=== PATIENT | female | born 1990 | race Caucasian/White ===

== ENCOUNTER 2021-04-27 17:53 | Emergency (ER) | payer OTHER, SELFPAY ==
[2021-04-27 17:54] VITALS: BP 120/92; PULSE 108; RESP 16; TEMP 36.6; O2SAT 99; BMI 17.6
--- NOTE | 2021-04-27 18:21 | EDS_ITS ---
HPI History of Present Illness Chief Complaint: Sore Throat Detail of Chief Complaint: Throat pain for 1 week Informant: patient Narrative Narrative: Patient presents to the emergency department with complaint of throat pain that she has had for about a week continuously. She complains of pain with swallowing. Patient is not sure if this is related to reflux. 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 Patient has history of ulcerative colitis. Patient states that she has had recent evaluation of her thyroid because she had a nodule and has had an ultrasound within the last 6 months. Patient states all her thyroid studies have been normal. Patient denies fever. She denies cough. Patient states that she has had multiple x-rays of her teeth and had a CT scan of her dentition as well. Patient's had recent chest x-ray. Patient is concerned about getting a CT scan of her neck and is asking if she can have an MRI of her neck. Patient has had similar symptoms of throat pain in the past but not as severe. Patient also describes some pain to the left side of her neck. Prior similar symptoms: Yes PFSH PFSH Medical History no medical history Allergy/AdvReac Type Severity Reaction Status Date / Time No Known Allergies Allergy Verified 04/27/21 17:57 Social History Smoking Status: Unknown if ever smoked ROS ROS ED Constitutional Constitutional ED: Reports systems reviewed and no addt'l complaints, except as documented; Denies body ache(s), change in weight or chills Eyes Eyes: Denies acute decrease in peripheral vision, change in vision, double vision or loss of vision ENT ENT ED: Reports none and other Details: Throat pain ; Denies ear pain, lip swelling, loss taste/smell, neck pain, otalgia or sore throat Cardiovascular Cardiovascular: Reports none; Denies abdominal pain, chest pain with activity, leg edema, lightheadedness, palpitations, rapid heart rate or syncope Respiratory/Chest Respiratory/Chest: Reports none; Denies change in mental status, dry cough, dyspnea, hemoptysis, shortness of breath at rest or shortness of breath with exertion Gastrointestinal Gastrointestinal: Reports none; Denies abdominal pain, change in stool character, diarrhea, hematemesis, hematochezia, melena, rectal bleeding or vomiting Genitourinary Genitourinary ED: Reports none; Denies abdominal discomfort, anuria, dysuria, genital pain or polyuria Musculoskeletal Musculoskeletal: Reports none; Denies arthralgias, back pain, difficulty walking, extremity pain, muscle weakness or myalgias Integumentary Reports none; Denies abscess or rash Neurologic Neurologic: Reports none; Denies abnormal gait, confusion, focal weakness, frequent falls, headache(s), loss of vision, numbness, paresthesias, radicular pain, vertigo or weakness Psychiatric Psychiatric: Reports systems reviewed and no addt'l complaints, except as documented and none; Denies behavioral changes, confusion, difficulty concentrating, hallucinations, suicidal ideation, tactile hallucinations or visual hallucinations Endocrine Endocrinology: Denies none, cold intolerance, excessive sweating, fatigue or heat intolerance Hematologic/Lymphatic Hematologic/Lymphatic: Reports none; Denies anemia, easy bleeding or easy bruising Allergic/Immunologic Allergic/Immunologic ED: Denies as per HPI, none, lip swelling, mouth swelling, throat swelling, tongue swelling or hives EXAM Physical Exam Const Vital Signs: 04/27/21 17:54 Temperature 97.8 F Temperature Source Temporal Pulse Rate 108 H Respiratory Rate 16 Blood Pressure 120/92 H Blood Pressure Mean 101 Pulse Ox 99 Oxygen Delivery Method Room Air Positive well nourished and well developed General Appearance ED: well developed and NAD HEENT Reports TM's clear and moist mucous membranes HEENT Narrative: I do not appreciate any masses with palpation over thyroid or throat. There is no cervical adenopathy noted. Patient has some mild tenderness with palpation over her trachea. normocephalic and atraumatic; Negative for trauma or tenderness Tympanic Membrane ED: Yes TM's clear Eyes PERRL and EOMs intact bilaterally General Eye ED: Negative for pale conjunctiva or scleral icterus Neck no lymphadenopathy, supple and no JVD General: Negative for tenderness Chest Wall inspection of chest normal and palpation of chest normal Chest: Negative for tenderness Resp normal respiratory effort and clear to auscultation bilaterally Effort and Inspection: Negative for respiratory distress or pain with movement Auscultation: Negative for rhonchi, wheezes or diminished lung sounds Cardio regular rate, regular rhythm, S1 normal heart sound, S2 normal heart sound and no murmurs Peripheral Pulses: pulses 2+ throughout GI normal to inspection, nondistended, normoactive bowel sounds, soft to palpation, non-tender, non-distended and no masses Back/Spine no CVA tenderness and no thoracic nor lumbar tenderness Extremity normal to inspection General Extremety ED: Negative for edema General Extremity: Negative for edema Neuro oriented x3, CN's II-XII intact bilaterally, no sensory deficits noted and gait normal Sensorium / Orientation: awake, alert, oriented to person, oriented to place and oriented to time Motor Exam: strength 5/5 throughout and strength abnormal Psych mental status grossly normal Skin no rashes or lesions noted and no wounds MDM MDM MDM Narrative Medical decision making narrative: I had a long discussion with patient and her mother who is with her. Etiology of her throat pain is unclear and recommended CT scan with IV contrast to evaluate further and rule out masses or other abnormalities. Patient is not comfortable with the radiation related to CT scan and states that she would prefer to follow-up with ENT and GI to evaluate further. At this point she is hesitant to start any acid reducers. I offered her a GI cocktail and she did not want to take that either. Discharge Plan Triage Chief Complaint: Sore Throat ED Provider: Toan Nichols Dx/Rx/DC Orders Clinical Impression: Pain in throat Instructions: ED Pain, Acute, Uncertain Cause Primary Care Provider: Griselda Gomez Referrals: Shawn Saldana MD [STAFF PHYSICIAN] - 3-5 Days Griselda Gomez MD [Primary Care Provider] - Disposition Disposition: Home, Self Care
== END 2021-04-27 18:38 | disposition home or self-care (01) ==
LOC: ED 18:35
PROVIDERS: Emergency Provider Emergency Medicine; PCP Pediatrics
DX: R07.0 Pain in throat (principal); M54.2 Cervicalgia
CPT/HCPCS: 99282